=== PATIENT | male | born 1985 | race Caucasian/White ===

== ENCOUNTER 2019-07-15 10:03 | Emergency (ER) | payer OTHER ==
[~2019-07-15] VITALS: Ht 195.6 cm; Wt 136.1 kg
[2019-07-15] MEDS ORDERED: LEXAPRO20 MG PO (10:22)
[2019-07-15] MEDS ORDERED: BUSPIRONE HCL5 GM PO (10:22)
[2019-07-15] MEDS ORDERED: NORCO 5-325 TA1 EAC1 PO (12:13)
[2019-07-15] MEDS ORDERED: KEFLEX500 M1 PO (12:13)
[2019-07-15 12:35] VITALS: BP 156/96
== END 2019-07-15 12:36 | disposition still patient (30) ==
LOC: M.ERS 10:03
DX: S02.2XXB Fracture of nasal bones, initial encounter for open fracture (principal); S01.21XA Laceration without foreign body of nose, initial encounter; Z88.0 Allergy status to penicillin; W22.8XXA Striking against or struck by other objects, initial encounter; Y93.89 Activity, other specified; Y92.89 Other specified places as the place of occurrence of the external cause; Y99.0 Civilian activity done for income or pay